=== PATIENT | female | born 1985 | race Caucasian/White ===

== ENCOUNTER → 2016-12-22 | Outpatient (CLI) | payer BC ==
[2016-12-22 19:13] LABS: Basophils % (A) 1 %; CH 30.2; CHCM 33.3; Eosinophils # (A) 0.3 k/uL (0-0.7); Eosinophils % (A) 4 %; HCT 47.4 % (34.0-46.0); HDW 2.38; HGB 15.5 gm/dL (11.4-16.0); Luc # (Auto) 0.19; Luc % (Auto) 2; Lymphocytes # (A) 1.9 k/uL (1.0-4.8); Lymphocytes % (A) 24 %; MCH 29.9 pg (25.0-35.0); MCHC 32.8 g/dL (31.0-37.0); MCV 91.1 fL (80.0-100.0); Mean Platelet Volume 7.4; Monocytes # (A) 0.5 k/uL (0-1.0); Monocytes % (A) 6 %; Neutrophils # (A) 5.1 k/uL (1.3-7.7); Neutrophils % (A) 64 %; RBC 5.21 m/uL (3.80-5.40); RDW 13.4 % (11.5-15.5); WBC (Perox) 7.93
[2016-12-22 19:36] LABS: ALT 40 U/L (9-52); AST 26 U/L (14-36); Alkaline Phosphatase 59 U/L (38-126); Anion Gap 12 mmol/L; Blood Urea Nitrogen 8 mg/dL (7-17); Calcium 9.8 mg/dL (8.4-10.2); Carbon Dioxide 22 mmol/L (22-30); Chloride 106 mmol/L (98-107); Cholesterol 145 mg/dL (<200); Glucose 142 mg/dL (74-99); HDL Cholesterol 36 mg/dL (40-60); Non-African American GFR(MDRD) >60 (>60 ml/min/1.73 sqM); Potassium 4.3 mmol/L (3.5-5.1); Sodium 140 mmol/L (137-145); Total Bilirubin 0.6 mg/dL (0.2-1.3); Total Protein 7.3 g/dL (6.3-8.2)
== END | disposition home or self-care (01) ==
LOC: MMGSC 12:25
PROVIDERS: ATTEND Family Medicine
DX: Z00.00 Encounter for general adult medical examination without abnormal findings (principal)
CPT/HCPCS: 36415; 80053; 80061; 84439; 84443; 85025

== ENCOUNTER → 2017-04-20 | Outpatient (CLI) | payer BC ==
--- NOTE | 2017-04-20 10:32 | US ---
EXAMINATION TYPE: US thyroid st tissue head/neck DATE OF EXAM: 04/20/2017 COMPARISON: NONE CLINICAL HISTORY: E04.9 ENLARGED THYROID. GLAND SIZE: Right Lobe: cm Overall Parenchyma: Left Lobe: cm Overall Parenchyma: Isthmus Thickness: cm NODULES RIGHT: # of nodules measured on right: 1. X x cm nodule at the pole with margins; . This nodule is and shows . Prior size: x x cm 2. X x cm nodule at the pole with margins; . This nodule is and shows . Prior size: x x cm 3. X x cm nodule at the pole with margins; . This nodule is and shows . Prior size: x x cm 4. X x cm nodule at the pole with margins; . This nodule is and shows . Prior size: x x cm LEFT: # of nodules measured on left: 1. X x cm nodule at the pole with margins; . This nodule is and shows . Prior size: x x cm 2. X x cm nodule at the pole with margins; . This nodule is and shows . Prior size: x x cm 3. X x cm nodule at the pole with margins; . This nodule is and shows . Prior size: x x cm 4. X x cm nodule at the pole with margins; . This nodule is and shows . Prior size: x x cm ISTHMUS: # of nodules measured in the isthmus: 1. X x cm nodule at the pole with margins; . This nodule is and shows . Prior size: x x cm Bilateral neck scanned, no evidence of lymphadenopathy. IMPRESSION: EXAMINATION TYPE: US thyroid st tissue head/neck DATE OF EXAM: 04/20/2017 COMPARISON: NONE CLINICAL HISTORY: E04.9 ENLARGED THYROID. MEASUREMENTS: GLAND SIZE: Right Lobe: 5.1 x 1.7 x 1.6 Left Lobe: 4.0 x 1.2 x 0.9 Isthmus Thickness: 0.4 NODULES RIGHT: # of nodules measured on right: 0 LEFT: # of nodules measured on left: 0 ISTHMUS: # of nodules measured within isthmus: 0 Bilateral neck scanned, no evidence of lymphadenopathy. Homogeneous texture Thyroid gland is overall normal in size and homogeneous echotexture without suspicious nodules seen. IMPRESSION: Unremarkable study
== END | disposition home or self-care (01) ==
LOC: RADUSWWP 09:51
PROVIDERS: ATTEND Family Medicine
DX: E04.9 Nontoxic goiter, unspecified (principal)
CPT/HCPCS: 76536

== ENCOUNTER → 2017-09-09 | Outpatient (CLI) | payer OTHER ==
--- NOTE | 2017-09-09 11:15 | CT ---
EXAMINATION TYPE: CT soft tissue neck w con DATE OF EXAM: 09/09/2017 HISTORY: Dysphagia COMPARISON: NONE CT DLP: 661 mGycm. Automated Exposure Control for Dose Reduction was Utilized. TECHNIQUE: CT scan of the neck is performed with IV Contrast, patient injected with 100 mL of Isovue 300, axial images are obtained, coronal and sagittal reformatted images are reviewed. FINDINGS: Airway: No gross abnormality seen. Parotid/submandibular glands: Parotid glands and submandibular glands are symmetric without surroundi ng inflammatory change. Carotid/Vascular Structures: Vascular structures are patent. No hemodynamically significant stenosis. Osseous Structures: Moderate circumferential mucosal thickening is seen of the visualized portions of the maxillary sinuses. Mastoid air cells appear well aerated. Other: At the level of the BB marker on series 7 image 36 there is a normal-appearing sternocleidomas toid muscle. Subcutaneous fat is unremarkable. Just posterior and inferior to this on image 40 a veno us varicosity is identified. The right lobe of the thyroid is slightly asymmetric to the left. Thyroi d gland also demonstrates ar 8 mm posterior right lobe nodule. Small amount of residual thymus is see n within the anterior superior mediastinum. Nonenlarged prevascular lymph node measures 7 mm in short axis. Visualized portions of the lung apices demonstrate minimal subsegmental atelectasis. Bilateral nonenlarged anterior and posterior cervical chain lymph nodes measure up to 9 mm on the right and 8 mm on the left. IMPRESSION: 1. No CT finding to correspond to the patient's palpable abnormality. Deep to the BB marker there is a normal-appearing sternocleidomastoid muscle, symmetric to the left, and posterior to the palpable m arker there is a venous varicosity. 2. Incidentally noted right posterior subcentimeter thyroid gland nodule. 3. Partial visualization of moderate paranasal sinus disease.
== END | disposition home or self-care (01) ==
LOC: RADCTMAIN 09:14
PROVIDERS: ATTEND Family Medicine
DX: E04.1 Nontoxic single thyroid nodule (principal); R13.10 Dysphagia, unspecified
CPT/HCPCS: 70491; Q9967